=== PATIENT | male | born 1940 | race Caucasian/White ===

== ENCOUNTER → 2016-05-05 | Outpatient (CLI) | payer OTHER, MEDICARE ==
--- NOTE | 2016-05-05 15:03 | MR ---
MRI Abdomen Without Contrast History: Abnormal findings previously, follow up. ICD10 code R93.3. Comparison: September 2014 and September 2013. TECHNIQUE: MRI is performed of the abdomen using a 3 [employer] MRI system. Coronal and axial imaging was obtained of the abdomen with standard imaging sequences without contrast. Findings: The subtle lesion in the uncinate process of the pancreas is not as well seen on today's ex am. The slight increased signal intensity on diffusion-weighted imaging is visualized measuring 6 mm in a similar location. The other anatomic imaging does not definitely show the size which could be se condary to slice selection and breathing. Pancreas is otherwise unremarkable. Exophytic cyst off the superior pole of the left kidney has increased in size over the interval now m easuring 8.7 x 9.5 x 6.9 cm. There is a thin septum at the lateral margin, similar in appearance. No evidence for soft tissue mass or nodularity to the lesion. Both kidneys are otherwise unremarkable. N o focal liver lesions identified. Spleen is unremarkable. No significant abdominal lymphadenopathy. Impression: 1. The subtle subcentimeter cyst in the uncinate process of the pancreas is not as well seen on today 's study but no suspicious interval change. 2. Enlarging exophytic benign cyst in left kidney.
== END ==
LOC: FIMAGING 13:32
PROVIDERS: ATTEND Internal Medicine Gastroenterology
DX: K86.2 Cyst of pancreas (principal); N28.1 Cyst of kidney, acquired

== ENCOUNTER → 2018-03-30 | Outpatient (CLI) | payer OTHER, MEDICARE | LOC: FIMAGING 13:40 | PROVIDERS: ATTEND Internal Medicine Gastroenterology | DX: R93.3 Abnormal findings on diagnostic imaging of other parts of digestive tract (principal) ==